=== PATIENT | male | born 1950 | race Caucasian/White ===

== ENCOUNTER → 2017-01-13 | Outpatient (CLI) | payer MEDICARE, OTHER ==
[~2017-01-13] MED LIST: ADVIL200 MG PO; COLACE100 MG PO; CPAP INH; DILAUDID 2MG(HYD2 MG PO; FISH OIL 1,2001 EAC2 PO; GLUCOPHAGE500 MG PO; GLUCOTROL10 MG PO; NAPROSYN500 MG PO; NORCO 5-325 MG1 TAB PO; TRAMADOL HCL50 MG PO; TYLENOL EXTRA500 MG PO; VALIUM5 MG PO; VITAMIN D400 UNIT PO; XARELTO10 MG PO; ZOCOR40 MG PO
== END | disposition disaster alternative care site (69) ==
LOC: GPOC 01-12 11:00
PROC: 3E0U33Z Introduction of Anti-inflammatory into Joints, Percutaneous Approach (ICD-10-PCS; principal; 2017-01-13)
PROC: 3E0U3BZ Introduction of Anesthetic Agent into Joints, Percutaneous Approach (ICD-10-PCS; 2017-01-13)
DX: M54.5 Low back pain (principal); M46.1 Sacroiliitis, not elsewhere classified
CPT/HCPCS: G0259; J3301

== ENCOUNTER → 2017-03-23 | Outpatient (CLI) | payer MEDICARE, OTHER ==
[2017-03-23 15:17] LABS: INR - (THERAPEUTIC) 0.99 (0.92-1.07); PROTIME 10.4 SECONDS (9.8-11.4)
== END ==
LOC: LGSMG 14:44
PROVIDERS: Family Medicine
DX: Z01.818 Encounter for other preprocedural examination (principal); M16.12 Unilateral primary osteoarthritis, left hip; Z79.899 Other long term (current) drug therapy

== ENCOUNTER 2017-03-28 09:20 | Inpatient (IN) | payer MEDICARE, OTHER ==
[~2017-03-28] VITALS: Ht 182.9 cm; Wt 85.6 kg
--- NOTE | ~2017-03-28 | OR ---
PATIENT'S NAME: ARNIE FUNK [facility] AGE: 66 Y [address] ROOM: [place] [address] LOCATION: [facility] ADMIT DATE: 03/28/2017 OR/Procedure Report DISCHARGE DATE: FAMILY PHYSICIAN: Donte Morrison MD ATTENDING PHYSICIAN: ZAIRA HYDE SURGEON: Zaira Hyde MD FUEL CONVERSION TECHNICIAN: 1. FILOMENA August. 2. Dann Puri CST/HVAC ENGINEERING TECHNICIAN. DATE OF PROCEDURE: 03/28/2017 PREOPERATIVE DIAGNOSIS: Primary osteoarthritis, left hip. POSTOPERATIVE DIAGNOSIS: Primary osteoarthritis, left hip. OPERATION: Left total hip arthroplasty. ANESTHESIA: Spinal anesthesia plus subcutaneous and periarticular local anesthesia (ropivacaine with epinephrine and Toradol). ESTIMATED BLOOD LOSS: Approximately 250 mL. DRAIN: None. SPECIMEN: None. COMPLICATIONS: None. IMPLANTS: 1. Samantha Trident titanium size 56 mm hemispherical uncemented acetabular shell with 1 dome hole cover and no screws. 2. Glencross X3 neutral acetabular polyethylene liner with 36 mm inner diameter. 3. DePuy Archer size 7 high-offset uncemented femoral component. 4. A 36 mm diameter metallic femoral head with +5 mm neck length. INDICATION FOR SURGERY: Arnie Funk is a 66-year-old male who presents with advanced left hip primary osteoarthritis and associated severely compromised activities of daily living. The patient has decided to proceed with hip replacement after having been thoroughly counseled regarding the associated risks, benefits, and limitations. We have specifically reviewed the risks and implications of infection, deep venous thrombosis, pulmonary embolism, mortality, neurovascular complications, blood transfusion (and associated potential for disease transmission or transfusion reaction), stiffness, instability, leg length discrepancy, mechanical deterioration of the components (due to wear and to loosening), and the potential need for PATIENT'S NAME: ARNIE FUNK [facility] AGE: 66 Y [address] ROOM: [address] [address] LOCATION: [facility] ADMIT DATE: 03/28/2017 OR/Procedure Report DISCHARGE DATE: FAMILY PHYSICIAN: Donte Morrison MD ATTENDING PHYSICIAN: ZAIRA HYDE revision. DESCRIPTION OF PROCEDURE: The patient was positioned in a lateral decubitus position with the left side up after administration of anesthesia and prophylactic antibiotics. An axillary roll was placed and the non-operative leg was well padded. The pelvis was locked perpendicularly to the floor on a pegboard. The left hip and entire operative extremity were prepped and draped with vigilant sterile technique. The patient's name as well as the intended operative side and procedure were confirmed with a verbal time-out involving myself, the circulating nurse, the scrub nurse, and the anesthesiologist. The left hip was approached through a standard posterolateral incision. The fascia yamilet and the gluteus kristopher fascia were sharply divided in line with the overlying skin incision. The sciatic nerve was identified and was vigilantly protected throughout the entire case. The short external rotators and posterior capsule were divided from their respective femoral insertions and tagged with four #1 Ethibond sutures for later repair. The hip was posteriorly dislocated with combined flexion, adduction, and internal rotation. The femoral neck osteotomy was performed with an oscillating saw. Inspection of the femoral head demonstrated full-thickness loss of articular cartilage throughout 80% of its weightbearing surface. There was a large osteophyte around the circumference of the femoral head. There was no femoral head collapse. Circumferential acetabular exposure was obtained. Inspection of the acetabulum demonstrated a moderate effusion consisting of benign-appearing translucent synovial fluid. There was an enlarged acetabular labrum with extensive degenerative tearing thereof. There was no dysplasia. There was full-thickness loss of articular cartilage throughout the majority of the acetabular dome. Remnants of the acetabular labrum were sharply thoroughly excised. The acetabulum was sequentially progressively reamed up to 55 mm with hemispherical power reamers. The final acetabular shell was impacted into position in 20 degrees of anteversion and 45 degrees of inclination. An excellent press-fit was obtained. No supplemental dome screw fixation was necessary. A neutral trial liner was inserted. Attention was next focused upon femoral preparation. The femoral canal initiator was utilized. The femoral canal was reamed by hand a size 5, and on power, to a size 7, with tapered conical reamers. The size 7 reamer tightly engaged the endosteal cortex of the proximal femur. The femoral canal was subsequently sequentially progressively broached up to a size 7. The size 7 broach obtained excellent axial and rotational stability. Trial reductions PATIENT'S NAME: ARNIE FUNK [facility] AGE: 66 Y [address] ROOM: [id number] [place], [place] [address] LOCATION: [facility] ADMIT DATE: 03/28/2017 OR/Procedure Report DISCHARGE DATE: FAMILY PHYSICIAN: Donte Morrison MD ATTENDING PHYSICIAN: ZAIRA HYDE with the above specified construct yielded acceptable stability and acceptable reproduction of leg length and offset. All trial components were removed. The final acetabular liner was inserted with excellent circumferential visualization of its locking mechanism to assure adequate deployment. The final femoral component was impacted into position. The femoral component achieved excellent axial and rotational stability. The trunnion of the femoral component was vigilantly protected prior to placement of the femoral head. The trunnion of the femoral component was thoroughly cleaned and dried prior to placement of the femoral head. The incision was thoroughly irrigated with bacteriostatic pulsatile saline lavage multiple times throughout the case. The entire joint space was thoroughly inspected and thoroughly irrigated to assure that there was no residual debris of any sort. A final reduction was then performed. After final reduction, the hip could be firmly externally rotated in full extension and zero degrees of abduction without anterior subluxation. In neutral rotation and zero degrees of abduction, the hip could be firmly flexed to 120 degrees without instability. At 90 degrees of flexion and zero degrees abduction, the hip could be internally rotated to 65 degrees before there was any hint of posterior subluxation. The posterior capsule and short external rotators were repaired through two drill holes in the posterior aspect of the greater trochanter. The fascia yamilet and gluteus kristopher fascia were closed with multiple simple and [id number] interrupted # 1 Ethibond and #1 Vicryl sutures. Subcutaneous tissues were thoroughly re-irrigated with bacteriostatic pulsatile saline lavage. Subcutaneous tissues were re-approximated with simple buried interrupted #0 Vicryl sutures. The skin was closed with superficial buried interrupted 2-0 Vicryl sutures followed by a running subcuticular 3-0 Monocryl suture, followed by Octylseal, followed by Steri- Strips with benzoin, followed by an occlusive Mepilex dressing. There were no intra-operative complications. It should be noted that the physician's research assistant member played an active, integral role throughout this entire operation. By providing expert retraction, they greatly facilitated and expedited safe and effective exposure of the proximal femur and acetabulum for preparation and implantation of the components. They were also actively involved in the patient's positioning, prepping and draping, as well as wound closure. PATIENT'S NAME: ARNIE FUNK [facility] AGE: 66 Y [address] ROOM: [place] [address] LOCATION: [facility] ADMIT DATE: 03/28/2017 OR/Procedure Report DISCHARGE DATE: FAMILY PHYSICIAN: Donte Morrison MD ATTENDING PHYSICIAN: ZAIRA HYDE MD ENEIDA COTE/ruchil /[id number] d: 03/28/17 1741 t: 03/29/17 1209, OPERATIVE SUMMARY
[~2017-03-28 09:20] MED LIST changes: -COLACE100 MG PO; -DILAUDID 2MG(HYD2 MG PO; -TYLENOL EXTRA500 MG PO; -VALIUM5 MG PO; -XARELTO10 MG PO
--- NOTE | 2017-03-28 15:56 | NUR ---
Significant Event:A/O X 3. Bilateral feet are tingling and have no sensation to deep touch. Flexes knees with no problems. Pain controlled with 1 dilaudid 2 mg in recovery @ 1400. Tolerating PO fluids and nutrition. Post op vital signs in progress. Follow up:1st hourly post op vital signs @ 1830.
--- NOTE | 2017-03-29 04:21 | NUR ---
Significant Event: Pt A&Ox3. VS stable, remains on RA. Pt up to chair yesterday for a couple of hours. Eating and drinking well. PIV RFA and LH, SL. Pain adequately controlled with hussein tylenol. No c/o numbness or tingling. No c/o nausea. Dressing remains C/D/I. Wears CPAP at HS. LS C/D. Up with SBA, gaitbelt, and 4WW. Follow up: Plan is to d/c today. Continue plan of care.
--- NOTE | 2017-03-29 09:30 | NUR ---
SPOKE TO PATIENT AT THE BEDSIDE. INTROUDCED CM AND OUR ROLE. PATIENT LIVES IN OWN HOME WITH SPOUSE.HE HAS ALL HIS DME. HE IS HOPING TO BE DISCHARGE HOME TODAY. PATIENT DOES NOT ANTICIPATE ANY DISCHARGE NEEDS AT THIS TIME.
[2017-03-29] MEDS ORDERED: TYLENOL EXTRA500 MG PO (13:47)
[2017-03-29] MEDS ORDERED: COLACE100 MG PO (13:48)
[2017-03-29] MEDS ORDERED: XARELTO10 MG PO (13:49)
[2017-03-29] MEDS ORDERED: VALIUM5 MG PO (13:53)
[2017-03-29] MEDS ORDERED: CPAP INH ×2 (13:56→14:02)
[2017-03-29] MEDS ORDERED: DILAUDID 2MG(HYD2 MG PO (13:57)
--- NOTE | 2017-03-29 15:27 | NUR ---
DISMISSAL EDUCATION REVIEWED WITH PT INCLUDING F/U APPT, CHANGES TO MEDICATIONS, RXs, ACTIVITY RESTRICTIONS. PT VERBALIZED UNDERSTANDING. IV REMOVED FROM L HAND. PT AND BELONGINGS TAKEN TO FRONT LOBBY IN WHEELCHAIR BY HEAD LIBRARIAN.
== END 2017-03-29 16:00 | disposition disaster alternative care site (69) | DRG 470 ==
LOC: G3N 09:20 → UNDOADMIN 09:20 → GSDC 09:20 → G3N 09:21 → EDSTATUS 14:00 → G3N 14:45 → GSDC 14:46 → G3N 17:10
PROVIDERS: ADMIT Orthopaedic Surgery
PROC: 0SRB02A Replacement of Left Hip Joint with Metal on Polyethylene Synthetic Substitute, Uncemented, Open Approach (ICD-10-PCS; principal; 2017-03-28)
DX: M16.12 Unilateral primary osteoarthritis, left hip (principal); Z96.641 Presence of right artificial hip joint; I10 Essential (primary) hypertension; E11.9 Type 2 diabetes mellitus without complications; E78.5 Hyperlipidemia, unspecified
CPT/HCPCS: C1776; J0690; J1885; J2001; J2795; J7030; J7120